=== PATIENT | female | born 1995 | race Caucasian/White ===

== ENCOUNTER 2019-09-20 22:12 | Emergency (ER) | payer BC | END 2019-09-20 22:25 | disposition home or self-care (01) | LOC: BURERS 22:12 | DX: T23.052A Burn of unspecified degree of left palm, initial encounter (principal); T23.051A Burn of unspecified degree of right palm, initial encounter; F32.9 Major depressive disorder, single episode, unspecified; X15.8XXA Contact with other hot household appliances, initial encounter | CPT/HCPCS: 99283 ==